=== PATIENT | female | born 1995 | race Caucasian/White ===

== ENCOUNTER → 2018-08-01 22:36 | Observation (INO) ==
[2018-08-01 20:06] LABS: Bilirubin,Urine Negative (Negative); Blood,Urine Negative (Negative); Clarity,Urine Clear (Clear); Color,Urine Yellow (Yellow); Glucose,Urine (UA) Normal (Normal); Ketones,Urine Negative (Negative); Leukocyte Esterase,Urine Negative (Negative); Nitrite,Urine Negative (Negative); Protein,Urine Negative (Neg-Trace); Specific Gravity,Urine 1.012 (1.010-1.025); Urobilinogen,Urine Normal (Normal)
[2018-08-01 20:15] LABS: Amphetamine Screen,Urine Negative ng/mL (Cutoff=1000); Barbiturate Screen,Urine Negative ng/mL (Cutoff=200); Benzodiazepines Screen,Urine Negative ng/mL (Cutoff=200); Cannabinoid Screen,Urine Negative ng/mL (Cutoff = 50); Cocaine Screen,Urine Negative ng/mL (Cutoff= 300); Opiate Screen,Urine Negative ng/mL (Cutoff=300); Phencyclidine Screen,Urine Negative ng/mL (Cutoff=25)
--- NOTE | 2018-08-01 22:32 | Discharge Summary ---
Date of Encounter: 08/01/18 Time of Encounter: 22:39 - Discharge Diagnosis (1) 27 weeks gestation of Priority: Primary Status: Acute Comments: Admitted to observation to rule out labor. No contractions visualized on toco. Cervix closed thick and high. FHR 130 bpm, moderate variability, no decelerations, +10x10 accels. (2) Abdominal pain during in second trimester Priority: Secondary Status: Acute Comments: Bilateral low abdominal pain most likely round ligament pain. Previous delivery at 35 weeks gestation. Patient requested cervical exam. Closed thick and high To follow-up with Dr. Collado as scheduled in 2 weeks unless symptoms worsen. - Discharge Medications Allergies/Adverse Reactions: Allergy/AdvReac Type Severity Reaction Status Date / Time oseltamivir [From Tamiflu] AdvReac Hallucinati Verified 01/24/17 19:16 ng Data Procedures and tests throughout hospitalization: Laboratory Tests 08/01/18 08/01/18 19:50 19:50 Urine Color Yellow Urine Clarity Clear Urine pH 7.0 Ur Specific [place] 1.012 Urine Protein Negative Urine Glucose (UA) Normal Urine Ketones Negative Urine Blood Negative Urine Nitrite Negative Urine Bilirubin Negative Urine Urobilinogen Normal Ur Leukocyte Esterase Negative Ur Culture Indicated? NO Urine Opiates Screen Negative Ur Barbiturates Screen Negative Ur Phencyclidine Scrn Negative Ur Amphetamines Screen Negative U Benzodiazepines Scrn Negative Urine Cocaine Screen Negative U Marijuana (THC) Screen Negative Ur Drug Screen Interp See Below Labs on day of discharge: Labs from last 24 hours 08/01/18 08/01/18 19:50 19:50 Urine Color Yellow Urine Clarity Clear Urine pH 7.0 Ur Specific [place] 1.012 Urine Protein Negative Urine Glucose (UA) Normal Urine Ketones Negative Urine Blood Negative Urine Nitrite Negative Urine Bilirubin Negative Urine Urobilinogen Normal Ur Leukocyte Esterase Negative Ur Culture Indicated? NO Urine Opiates Screen Negative Ur Barbiturates Screen Negative Ur Phencyclidine Scrn Negative Ur Amphetamines Screen Negative U Benzodiazepines Scrn Negative Urine Cocaine Screen Negative U Marijuana (THC) Screen Negative Ur Drug Screen Interp See Below Date of admission: 08/01/18 19:23 Discharging clinician: Sherlyn Ross Anticipated date of discharge: 08/01/18 - Patient Status Disposition: Home, Self-Care Condition: Good Functional capacity at discharge: independent ambulation Overall status at discharge: patient is progressing back to baseline - Discharge Instructions Follow Up With: Shoshana Collado MD [Partnered Physician] - Additional Instructions: LABOR AND DELIVERY DISCHARGE INSTRUCTIONS Signs and Symptoms to be Reported to your Doctor Immediately: * Sudden gush, continuous or intermittent lead of fluid from vagina (note the time of gush and color of fluid) * Onset of bright red vaginal bleeding with or without pain (if you had a vaginal exam during this visit you may notice some dark red spotting. This is normal.) * Lower abdominal cramping or backache that is premenstrual-like feeling. * More than 6 contractions in one hour. * Burning during urination, having to urinate more frequently or pain in your mid-back. * A change in the baby's activity. This could be an increase or decrease in activity. * Severe headache which does not go away with tylenol. * Sudden swelling in the face, hands, arms and/or legs. * Upper abdominal pain - sometimes associated with heartburn or nausea and is not relieved by Maalox, Mylanta or Tums. * Dizziness or blurred vision or visual disturbances (seeing stars/lights). * Kick Counts One hour after a meal, lay down on one side in a quiet place. Count the number of angela the baby moves during an hour. If less than 6 movements, notify your physician. Diet: *Force fluids - 8-10 tall glasses of fluid per day. May include popsicles and jello. *Limit caffeine - this includes chocolate, coffee, tea, any soft drink containing such as all lakshmi, David Yellow and Mountain Dew - Diet and Activity Activity: resume usual activities as tolerated Diet: regular diet Hospital Course [employer] Reason for admission: other (bilateral low abdominal pain.) Hospital course: Goldie is a G 3 P1 at 25 weeks gestation who presents today with lower abdominal pain bilaterally. States she was sitting at home when she noticed it around 5:00 today. Patient has not taken Tylenol or tried any relief measures. Reports positive movement, denies vaginal bleeding and discharge. Patient reports she had a previous 35 week delivery. She is not currently on progesterone of any sort. Patient has a follow-up appointment for regular visit with Dr. Collado on 08/20. Patient states her course has been uncomplicated. heart tones are appropriate for gestational age. No contractions visualized on toco monitor. Patient requested vaginal exam and was found to be closed thick and high. Time Attestation: Total time spent providing and/or coordinating discharge services: Time Spent: Less than 30 minutes Exam - Constitutional General appearance IM: A&O X 3, pleasant, no acute distress, answers questions appropriately - Respiratory Respiratory exam: Present: CTAB - Cardiovascular Cardiovascular exam IM: Present: RRR, +S1, +S2 - GI/Abdominal GI/Abdominal exam IM: normal bowel sounds, soft - Rectal Rectal exam: deferred - External exam: normal external exam - Extremities Exam Extremities exam IM: Present: full ROM, normal capillary refill, normal inspection, warm - Neurological Exam Neurological exam: alert, oriented X3, reflexes normal - VTE Reasons for not Prescribing Prophylaxis: Treatment not Indicated - Low risk for VTE
== END | disposition home or self-care (01) ==
LOC: 1NENULAB
PROVIDERS: ADMIT Registered Nurse; ATTEND Registered Nurse

== ENCOUNTER → 2018-09-17 19:20 | Observation (INO) ==
[2018-09-16] MEDS: Betamethasone Acet/SodPhos 6 MG/ML MDV IM SCH (19:12)
[2018-09-16] MEDS: Ringers Solution, Lactated 1,000 ML IVC SCH (19:14)
[2018-09-16 19:16] LABS: Bilirubin,Urine Negative (Negative); Blood,Urine Negative (Negative); Clarity,Urine Cloudy (Clear); Color,Urine Yellow (Yellow); Glucose,Urine (UA) Normal (Normal); Ketones,Urine Negative (Negative); Leukocyte Esterase,Urine Negative (Negative); Nitrite,Urine Negative (Negative); PH,Urine 6.5 pH Units (5.0-8.0); Protein,Urine Negative (Neg-Trace); Specific Gravity,Urine 1.019 (1.010-1.025); Urobilinogen,Urine Normal (Normal)
[2018-09-16 19:19] LABS: Bacteria,Urine None Seen per hpf (None-Few); Hyaline Casts,Urine None Seen per lpf (None-Few); Squamous Epithelial Cell,Urine Many per lpf (None-Few)
[2018-09-16 19:24] LABS: Basophils % 0.3 %; Eosinophils # 0.1 K/mcL (0.0-0.6); Eosinophils % 0.6 %; Hematocrit 36.7 % (35.3-44.9); Hemoglobin 12.2 g/dL (11.5-15.4); Immature Granulocytes % 0.6 % (0-4); Lymphocytes # 2.1 K/mcL (0.6-4.6); Lymphocytes % 20.7 %; Mean Corpuscular HGB Conc 33.2 g/dL (31.6-35.5); Mean Corpuscular Hemoglobin 28.4 pg (28.0-33.3); Mean Corpuscular Volume 85.3 fL (83.0-100.0); Monocytes # 0.7 K/mcL (0.0-1.3); Monocytes % 7.4 %; Platelet Count 194 K/mcL (140-400); Red Cell Distribution Width 12.2 % (11.5-14.5); Segmented Neutrophils % 70.4 %
[2018-09-16 19:26] LABS: Amphetamine Screen,Urine Negative ng/mL (Cutoff=1000); Barbiturate Screen,Urine Negative ng/mL (Cutoff=200); Benzodiazepines Screen,Urine Negative ng/mL (Cutoff=200); Cannabinoid Screen,Urine Negative ng/mL (Cutoff = 50); Cocaine Screen,Urine Negative ng/mL (Cutoff= 300); Opiate Screen,Urine Negative ng/mL (Cutoff=300); Phencyclidine Screen,Urine Negative ng/mL (Cutoff=25)
[2018-09-16 19:30] LABS: Amorphous Sediment,Urine Many (Few)
--- NOTE | 2018-09-16 20:40 | OB/GYN History & Physical ---
Date of Encounter: 09/16/18 Time of Encounter: 18:40 Assessment and Plan (1) 31 weeks gestation of Current visit: Yes Status: Acute (2) labor in second trimester Current visit: Yes Status: Acute Patient given IV hydration. One dose of terbutaline. No change with this. Patient continued to contract. She was started on Procardia 20 mg every 6 hours. She was also given first dose of steroids on admission because of her history of delivery with her previous . Qualifiers: labor delivery status: without delivery Qualified Code(s): O60.02 - labor without delivery, second trimester History of Present Illness Chief complaint: ctxs HPI: Ms. Higgins is a 22 year old female who presents to labor and delivery at 31 weeks and 4 days complaining of lower back pain and pressure contractions which started approximately 3 hours ago. She states that her first she began laboring at 27 weeks and delivered 5 weeks early. On presentation she was found to be panda every 2-4 minutes. She was breathing through the contractions. She denies any leakage or discharge. Sterile vaginal exam was performed she was found to be 1 cm, 70% effaced and a -2 station. Patient given IV hydration, one dose of terbutaline and steroids because of her history of delivery. She has no drug allergies. She is currently on vitamins. She has no chronic medical conditions. Surgical history is negative. She has no history of abnormal Pap smears, STDs or pelvic infections. She has no history of abnormal breast findings. Socially she denies tobacco, alcohol, illicit drug use. Obstetric history significant for 1 vaginal delivery uncomplicated. Family history significant for diabetes, heart disease, hypercholesterolemia and COPD. Her maternal grandmother also had breast cancer. Past Med Surg Social Fam HX - Past Medical History Medical history: no medical history Additional medical history: CHRONIC pelvic pain. ENDOMETRIOSIS. ESOPHAGITIS Psychiatric history: no psych history - Past Surgical History Surgical History: no surgical history Additional surgical history: laprascopic uterine surgery - Social History Smoking Status: Never smoker Smokeless Tobacco Status: No Alcohol use: none, occasionally Drug use: none - Family History Mother Adopted: [place]: Ameena Age: 43 Family Member Ethnicity: Non- Living Status: Still Living Hx Family Cancer: Yes Obstetrical History - Pregnancies : 3 Para: 1 Term: 1 Ab's: 1 Livin Medications and Allergies Allergy/AdvReac Type Severity Reaction Status Date / Time oseltamivir [From Tamiflu] AdvReac Hallucinati Verified 01/24/17 19:16 ng Review of System OB All systems PM: reviewed and no additional remarkable complaints except as stated Exam - Constitutional Constitutional: well developed, well nourished, no acute distress, average body habitus, mild distress - HEENT HEENT: EOMI, PERRL - Neck Neck exam: full ROM - Lungs Respiratory exam: CTAB - Cardiovascular Cardiovascular exam: RRR - Abdomen Abdomen: Present: bowel sounds normal, gravid, non tender - Vagina Vagina: Present: normal moisture - Cervix Dilation: 1 Effacement: 70 Station: -2 - Uterus Uterus exam: Present: normal size Results Result Diagrams: 09/16/18 19:02 Abnormal lab results Urine Clarity Cloudy (Clear) A 09/16/18 19:02 Urine Microscopic RBC 3-5 per hpf (0-3) H 09/16/18 19:02 Urine Microscopic WBC 3-5 per hpf (0-3) H 09/16/18 19:02 Ur Squamous Epith Cells Many per lpf (None-Few) H 09/16/18 19:02 Amorphous Sediment Many (Few) H 09/16/18 19:02 All other labs normal. - VTE Reasons for not Prescribing Prophylaxis: Treatment not Indicated - Low risk for VTE
--- NOTE | 2018-09-17 06:41 | OB/GYN Progress Note ---
Date of Encounter: 09/17/18 Time of Encounter: 06:39 - Assessment and Plan (1) 31 weeks gestation of Current Visit: Yes Status: Acute (2) labor in second trimester Current Visit: Yes Status: Acute Patient given IV hydration. One dose of terbutaline. No change with this. Patient continued to contract. She was started on Procardia 20 mg every 6 hours. She was also given first dose of steroids on admission because of her history of delivery with her previous . Qualifiers: labor delivery status: without delivery Qualified Code(s): O60.02 - labor without delivery, second trimester Subjective - Subjective Principal diagnosis: labor Interval history: 22-year-old female who presented to labor and delivery panda at 32 weeks. On examination patient was found to be 1 cm 70% effaced at admission. Patient continued to contract. She was given IV hydration, terbutaline followed eventually by Procardia. Patient continued to contract. Repeat examination pa tient was found to be 3 cm. She was then started on magnesium sulfate. Since that time contractions have spaced out. Over the night there is been no cervical change. Patient will go without contractions and then have a few that time. We will continue to monitor. Patient has had first dose steroids. Objective - Vital Signs Vital Signs: Intake and Output 09/16/18 09/16/18 09/17/18 15:59 23:59 07:59 Output Total 400 / 400 Balance -400 / -400 Output: Urine 400 / 400 Other: Weight 66.3 kg - Exam FHR: category 1 Abdomen: Present: normal appearance, gravid Uterus: Present: normal Cervical dilation: 3 Cervix effacement: 70 station: -3 - Labs Labs: Abnormal lab results Urine Clarity Cloudy (Clear) A 09/16/18 19:02 Urine Microscopic RBC 3-5 per hpf (0-3) H 09/16/18 19:02 Urine Microscopic WBC 3-5 per hpf (0-3) H 09/16/18 19:02 Ur Squamous Epith Cells Many per lpf (None-Few) H 09/16/18 19:02 Amorphous Sediment Many (Few) H 09/16/18 19:02
[2018-09-17] MEDS: Ringers Solution, Lactated 1,000 ML IVC SCH (08:11)
[2018-09-17] MEDS: Penicillin G Potassium 2,500,000 UNIT in 0.9 % Sodium Chloride 100 ML IVPB SCH ×3 (08:12→17:56)
[2018-09-17] MEDS: Betamethasone Acet/SodPhos 6 MG/ML MDV IM SCH (19:08)
[~2018-09-17 19:20] MED LIST: Magnesium Sulfate 20 gm/500mL 20 GM/500 ML IV.SOLN IV SCH; NIFEdipine 10 MG CAPSULE PO ONE; NIFEdipine 10 MG CAPSULE PO SCH; Penicillin G Potassium 5,000,000 UNIT in 0.9 % Sodium Chloride Mini Bag 100 ML IVPB ONE; Ringers Solution, Lactated 1,000 ML ONE; Terbutaline 1 MG/ML VIAL SQ ONE
== END | disposition home or self-care (01) ==
LOC: 1NENULAB
PROVIDERS: ADMIT Obstetrics & Gynecology; ATTEND Obstetrics & Gynecology

== ENCOUNTER → 2018-09-18 17:55 | Observation (INO) ==
--- NOTE | 2018-09-18 14:07 | OB/GYN Progress Note ---
Date of Encounter: 09/18/18 Time of Encounter: 14:04 - Assessment and Plan (1) labor in third trimester Current Visit: Yes Status: Acute Plan of care made with Dr. Aguero We will give 4 g load of mag sulfate and reassess contraction pattern. Transfer to [facility] if needed Patient received steroid course last dose yesterday Qualifiers: labor delivery status: without delivery Qualified Code(s): O60.03 - labor without delivery, third trimester (2) NST (non-stress test) reactive Current Visit: Yes Status: Acute FHR 140 bpm, moderate variability, +10x10s accel, no decel (3) 31 weeks gestation of Current Visit: No Status: Acute Patient admitted to observation for labor Will reassess contraction pattern after mag sulfate bolus and transfer to [facility] if necessary. Subjective - Subjective Principal diagnosis: labor Interval history: Goldie presented today with complaints of contractions since noon. She had previously been admitted on Monday for labor was given a course of steroids and sent home yesterday morning. She returns today and visible discomfort. Her cervix is unchanged at 3 cm 80% and -[address] Aguero aware of patient's status and complaints. Orders received to begin magnesium sulfate and reassess for labor. Will transfer patient if contractions continue and cervical change is noted. Today she states the fetus has not moved as much as normal, she denies bleeding and fluid leakage. Antepartum ROS: movement normal (decreased today), contractions, no loss of fluid, no vaginal bleeding Objective - Exam FHR: category 1 Abdomen: Present: normal appearance, soft, gravid Uterus: Present: normal Cervical dilation: 3 Cervix effacement: 80 station: -1
[2018-09-18 14:09] VITALS: BP 122/70
[2018-09-18 14:34] LABS: Basophils % 0.1 %; Hematocrit 35.2 % (35.3-44.9); Hemoglobin 11.5 g/dL (11.5-15.4); Immature Granulocytes % 1.2 % (0-4); Lymphocytes # 1.7 K/mcL (0.6-4.6); Lymphocytes % 11.2 %; Mean Corpuscular HGB Conc 32.7 g/dL (31.6-35.5); Mean Corpuscular Hemoglobin 28.1 pg (28.0-33.3); Mean Corpuscular Volume 86.1 fL (83.0-100.0); Mean Platelet Volume 11.1 fL (9.4-12.4); Monocytes # 0.9 K/mcL (0.0-1.3); Monocytes % 5.8 %; Neutrophils # 12.4 K/mcL (1.6-8.9); Platelet Count 193 K/mcL (140-400); Red Blood Count 4.09 M/mcL (3.82-4.97); Red Cell Distribution Width 12.4 % (11.5-14.5); Segmented Neutrophils % 81.7 %
[2018-09-18 16:22] LABS: Bilirubin,Urine Negative (Negative); Blood,Urine Negative (Negative); Clarity,Urine Cloudy (Clear); Color,Urine Yellow (Yellow); Glucose,Urine (UA) Normal (Normal); Ketones,Urine Negative (Negative); Leukocyte Esterase,Urine Negative (Negative); Nitrite,Urine Negative (Negative); Protein,Urine Negative (Neg-Trace); Specific Gravity,Urine 1.008 (1.010-1.025); Urobilinogen,Urine Normal (Normal)
[2018-09-18 16:24] LABS: Bacteria,Urine None Seen per hpf (None-Few); Hyaline Casts,Urine None Seen per lpf (None-Few); RBC,Urine 0-3 per hpf (0-3); Squamous Epithelial Cell,Urine Many per lpf (None-Few); WBC,Urine 0-3 per hpf (0-3)
[2018-09-18 16:39] LABS: Amphetamine Screen,Urine Negative ng/mL (Cutoff=1000); Barbiturate Screen,Urine Negative ng/mL (Cutoff=200); Benzodiazepines Screen,Urine Negative ng/mL (Cutoff=200); Cannabinoid Screen,Urine Negative ng/mL (Cutoff = 50); Cocaine Screen,Urine Negative ng/mL (Cutoff= 300); Opiate Screen,Urine Negative ng/mL (Cutoff=300); Phencyclidine Screen,Urine Negative ng/mL (Cutoff=25)
--- NOTE | 2018-09-18 17:01 | OB/GYN Progress Note ---
Date of Encounter: 09/18/18 Time of Encounter: 16:57 - Assessment and Plan (1) labor in third trimester Current Visit: Yes Status: Acute Plan of care made with Dr. Aguero We will give 4 g load of mag sulfate and reassess contraction pattern. Transfer to [facility] if needed Patient received steroid course last dose yesterday Update at 1659: Patient continues to contract. Agreeable to transfer to [facility] for labor. Spoke with [facility] fellow at [facility] and transfer was accepted at this time by Dr. Cheung Qualifiers: labor delivery status: without delivery Qualified Code(s): O60.03 - labor without delivery, third trimester (2) NST (non-stress test) reactive Current Visit: Yes Status: Acute FHR 140 bpm, moderate variability, +10x10s accel, no decel (3) 31 weeks gestation of Current Visit: No Status: Acute Patient admitted to observation for labor Will reassess contraction pattern after mag sulfate bolus and transfer to [facility] if necessary. Subjective - Subjective Principal diagnosis: labor Interval history: Patient continues to contract despite 4 g magnesium bolus and 2 g per hour. Her cervix remains unchanged from previous exam. Plan of care discussed with Dr. Aguero, decision made to go ahead and transfer patient to [facility] at this time. Spoke with fellow at [facility] and transfer accepted under Dr. Cheung. Discussed transfer with patient and she is agreeable to be taken to [facility]. Will continue magnesium for transport. Objective - Vital Signs Vital Signs: Vital Signs Temp Pulse Resp BP 09/18/18 14:05 98.8 F 75 14 122/70 - Exam FHR: category 1 Cervical dilation: 3 Cervix effacement: 80 station: -2 - Labs Labs: Abnormal lab results WBC 15.2 K/mcL (4.3-11.1) H D 09/18/18 14:00 Hct 35.2 % (35.3-44.9) L 09/18/18 14:00 Neutrophils # 12.4 K/mcL (1.6-8.9) H 09/18/18 14:00 Urine Clarity Cloudy (Clear) A 09/18/18 16:12 Ur Specific [place] 1.008 (1.010-1.025) L 09/18/18 16:12 Ur Squamous Epith Cells Many per lpf (None-Few) H 09/18/18 16:12
[~2018-09-18 17:55] MED LIST changes: -Magnesium Sulfate 20 gm/500mL 20 GM/500 ML IV.SOLN IV SCH; +Magnesium Sulfate 20 gm/500mL 20 GM/500 ML IV.SOLN IVC SCH; -NIFEdipine 10 MG CAPSULE PO ONE; -NIFEdipine 10 MG CAPSULE PO SCH; -Penicillin G Potassium 5,000,000 UNIT in 0.9 % Sodium Chloride Mini Bag 100 ML IVPB ONE; +Ringers Solution, Lactated 1,000 ML IVC SCH; -Ringers Solution, Lactated 1,000 ML ONE; -Terbutaline 1 MG/ML VIAL SQ ONE
== END | disposition critical access hospital (66) ==
LOC: 1NENULAB
PROVIDERS: ADMIT Registered Nurse; ATTEND Registered Nurse

== ENCOUNTER 2018-11-02 18:03 | Inpatient (IN) ==
[2018-11-02] MEDS ORDERED: Naloxone 0.4 MG/ML INJ IVP PRN (18:07)
[2018-11-02] MEDS ORDERED: *HR* Nalbuphine 10 MG/ML AMPUL IVP PRN (18:07)
[2018-11-02] MEDS ORDERED: Ondansetron 4 MG/2 ML VIAL IVP PRN (18:07)
[2018-11-02] MEDS ORDERED: Metoclopramide 10 MG/2 ML VIAL IVP PRN (18:07)
[2018-11-02] MEDS ORDERED: Famotidine 20 MG/2 ML VIAL IVP PRN (18:07)
[2018-11-02] MEDS ORDERED: Ringers Solution, Lactated 1,000 ML ONE (18:09)
[2018-11-02] MEDS ORDERED: Ringers Solution, Lactated 1,000 ML IVC SCH (18:15)
[2018-11-02 18:39] LABS: Basophils % 0.3 %; Eosinophils # 0.1 K/mcL (0.0-0.6); Eosinophils % 0.6 %; Hematocrit 34.7 % (35.3-44.9); Hemoglobin 11.4 g/dL (11.5-15.4); Immature Granulocytes % 0.2 % (0-4); Lymphocytes # 2.1 K/mcL (0.6-4.6); Lymphocytes % 21.8 %; Mean Corpuscular HGB Conc 32.9 g/dL (31.6-35.5); Mean Corpuscular Hemoglobin 27.3 pg (28.0-33.3); Mean Corpuscular Volume 83.2 fL (83.0-100.0); Mean Platelet Volume 12.2 fL (9.4-12.4); Monocytes # 0.6 K/mcL (0.0-1.3); Monocytes % 6.5 %; Neutrophils # 6.7 K/mcL (1.6-8.9); Platelet Count 188 K/mcL (140-400); Red Blood Count 4.17 M/mcL (3.82-4.97); Segmented Neutrophils % 70.6 %
[2018-11-02 18:41] LABS: Amphetamine Screen,Urine Negative ng/mL (Cutoff=1000); Barbiturate Screen,Urine Negative ng/mL (Cutoff=200); Benzodiazepines Screen,Urine Negative ng/mL (Cutoff=200); Cannabinoid Screen,Urine Negative ng/mL (Cutoff = 50); Cocaine Screen,Urine Negative ng/mL (Cutoff= 300); Opiate Screen,Urine Negative ng/mL (Cutoff=300); Phencyclidine Screen,Urine Negative ng/mL (Cutoff=25)
--- NOTE | 2018-11-02 19:02 | OB/GYN History & Physical ---
Date of Encounter: 11/02/18 Time of Encounter: 18:59 Assessment and Plan (1) 38 weeks gestation of Current visit: Yes Status: Acute Expectant management of labor History of Present Illness Chief complaint: labor HPI: Ms. Higgins is a 22 year old female at 38 weeks and 2 days who presents to labor and delivery in labor. On presentation she is 8 cm 100% effaced with bulging bag. She is panda irregularly. She is having no complaints of any kind. This patient has no drug allergies. She is currently on vitamins. She has no chronic medical conditions. Surgical history includes a diagnostic laparoscopy for endometriosis. She has no history of abnormal Pap smears, STDs or pelvic infections. Socially she denies tobacco, alcohol, illicit drug use. Obstetric history significant for one vaginal delivery uncomplicated. Family history significant for diabetes, heart disease and hypercholesterolemia. Patient's maternal grandmother had breast cancer. Past Med Surg Social Fam HX - Past Medical History Medical history: no medical history Additional medical history: CHRONIC pelvic pain. ENDOMETRIOSIS. ESOPHAGITIS Psychiatric history: no psych history - Past Surgical History Surgical History: no surgical history Additional surgical history: laprascopic uterine surgery - Social History Smoking Status: Never smoker Smokeless Tobacco Status: No Alcohol use: none, occasionally Drug use: none - Family History Mother Adopted: No Family Member Ethnicity: Non- Living Status: Still Living Hx Family Cardiac Disorders: No Hx Family Respiratory Disorders: No Hx Family Cancer: Yes (breast cancer) Hx Family GI Disorders: No Hx Family Endocrine Disorder: No Hx Family Neuromuscular Disorders: No Hx Family Neurologic Disorders: No Hx Family HEENT Disorders: No Hx Family Autoimmune Disorders: No Obstetrical History - Pregnancies : 3 Para: 1 Term: 0 : 1 Ab's: 1 Livin Medications and Allergies Allergy/AdvReac Type Severity Reaction Status Date / Time oseltamivir [From Tamiflu] AdvReac Hallucinati Verified 01/24/17 19:16 ng Review of System OB All systems PM: reviewed and no additional remarkable complaints except as stated Exam - Constitutional Constitutional: well developed, well nourished, no acute distress, average body habitus - HEENT HEENT: EOMI, PERRL - Neck Neck exam: full ROM - Lungs Respiratory exam: CTAB - Cardiovascular Cardiovascular exam: RRR - Abdomen Abdomen: Present: bowel sounds normal, gravid, non tender - Extremities Extremities exam: full ROM - Vagina Vagina: Present: normal moisture - Cervix Dilation: 8 Effacement: 100 Station: -1 - Uterus Uterus exam: Present: normal size Results Result Diagrams: 11/02/18 18:06 Abnormal lab results Hgb 11.4 g/dL (11.5-15.4) L 11/02/18 18:06 Hct 34.7 % (35.3-44.9) L 11/02/18 18:06 MCH 27.3 pg (28.0-33.3) L 11/02/18 18:06 All other labs normal. - VTE Reasons for not Prescribing Prophylaxis: Treatment not Indicated - Low risk for VTE
[2018-11-02] MEDS ORDERED: Oxytocin 20 units/ LR 1000 mL 20 UNIT/1,000 ML BAG IVC ONE (19:22)
--- NOTE | 2018-11-02 20:49 | OB/GYN Procedure Note ---
Delivery - Delivery Date: 11/02/18 Provider: Alfredito Alvarez Intrapartum events: none Delivery induction: none Delivery augmentation: rupture of membranes Delivery monitor: external FHT, external uterine Anesthesia: none Quantitated Blood Loss: 200 - Infant (s) A Delivery Date: 11/02/18 Infant Delivery Time: 20:31 Presentation: vertex Position: OA Route of delivery: Gender: Male Viability: Viable Pounds: 7 Ounces: 14 Weight Gram: 3.57 kg at 1 minute: 9 at 5 mins: 9 Shoulder Dystocia: not encountered Specimens collected: cord blood Placenta: spontaneous Cord: 3 umbilical vessels - Repair Episiotomy: none Laceration Description: None - Complications Delivery complications: none - Disposition Mom disposition: stable in LDR disposition: stable in LDR - Comments Comments: Patient progressed to complete and pushing and had a spontaneous vaginal delivery of a male over an intact perineum. The 's head was on the perineum easily. The rest of the was then delivered with 1 push. Infant cried immediately upon delivery. The cord was cut to cut after 1 minute. Cord blood was obtained. Placenta was delivered spontaneously intact. There are no cervical, vaginal, periurethral or perineal lacerations noted. Patient delivered a male infant with which was passed immediately to mother. Weight 7 lbs. 14 oz. with Apgars of 9 at 1 minute and 9 at 5 minutes.
[2018-11-02] MEDS ORDERED: Rho Immune Globulin 1,500 UNIT SYRINGE IM PRN (23:03)
[2018-11-02] MEDS ORDERED: Measles/Mumps/Rubella Vacc 0.5 ML VIAL SQ PRN (23:03)
[2018-11-02] MEDS ORDERED: Acetaminophen 325 MG TABLET PO PRN (23:03)
[2018-11-02] MEDS ORDERED: Oxytocin 20 units/ LR 1000 mL 20 UNIT/1,000 ML BAG IVC SCH (23:03)
[2018-11-02] MEDS: Ibuprofen 600 MG TABLET PO PRN (23:30)
[2018-11-03 07:06] LABS: Basophils % 0.2 %; Eosinophils % 0.3 %; Hematocrit 32.8 % (35.3-44.9); Hemoglobin 10.7 g/dL (11.5-15.4); Immature Granulocytes % 0.6 % (0-4); Immature Platelets 6.5 % (1.1-6.1); Lymphocytes # 2.4 K/mcL (0.6-4.6); Lymphocytes % 17.5 %; Mean Corpuscular HGB Conc 32.6 g/dL (31.6-35.5); Mean Corpuscular Hemoglobin 27.2 pg (28.0-33.3); Mean Corpuscular Volume 83.2 fL (83.0-100.0); Mean Platelet Volume 11.6 fL (9.4-12.4); Monocytes # 0.7 K/mcL (0.0-1.3); Monocytes % 5.5 %; Neutrophils # 10.2 K/mcL (1.6-8.9); Platelet Count 159 K/mcL (140-400); Red Blood Count 3.94 M/mcL (3.82-4.97); Red Cell Distribution Width 12.7 % (11.5-14.5); Segmented Neutrophils % 75.9 %
[2018-11-03] MEDS ORDERED: Prenatal Vit/FA 1 EACH TABLET PO SCH (09:00)
[2018-11-03] MEDS: Ibuprofen 600 MG TABLET PO PRN ×2 (09:38→15:56)
--- NOTE | 2018-11-03 10:58 | OB/GYN Progress Note ---
Date of Encounter: 11/03/18 Time of Encounter: 10:58 - Assessment and Plan (1) Vaginal delivery Current Visit: Yes Status: Acute Patient meeting day one milestones. Pain well-controlled with prescribed medications. Voiding without difficulty, tolerating regular diet. No bowel movement yet. Anticipate discharge tomorrow. Patient would like to wait for discharge until morning. Subjective - Subjective Principal diagnosis: Status post vaginal delivery Interval history: Patient is doing well today. Requests to wait for discharge until tomorrow morning so she doesn't have to take the baby home so late. Patient meeting day one milestones. Pain well-controlled with prescribed medications. Voiding without difficulty, tolerating regular diet. No bowel movement yet. Bleeding light-moderate. Anticipate discharge tomorrow Patient reports: appetite normal, voiding normally, pain well controlled, ambulating normally [place]: doing well, bottle feeding Objective - Latest Vital Signs Latest vital signs: Vital Signs Temp Pulse Resp BP Pulse Ox 11/03/18 07:40 97.8 F 81 12 111/74 98 11/03/18 01:10 97.8 F 85 16 119/67 98 11/03/18 00:10 98.2 F 87 18 138/87 99 11/02/18 23:10 98.1 F 83 20 141/88 98 Intake and Output 11/02/18 11/03/18 11/03/18 23:59 07:59 15:59 Intake Total 450 / 450 250 / 250 Output Total 600 / 600 Balance -600 / -600 450 / 450 250 / 250 Intake: Oral 450 / 450 250 / 250 Output: Urine 600 / 600 Other: Meal Breakfast Percent of Meal Consumed 90% Weight 68.2 kg 68.2 kg Patient Weight 11/03/18 23:59 Weight 68.2 kg - Exam Lungs: bilateral: normal Chest: Normal S1, Normal S2 Extremities: Present: normal Abdomen: Present: normal appearance, soft Uterus: Present: normal, firm Uterus Position: 1 Finger Below Umbilicus, Midline - Labs Labs: Laboratory Results - last 24 hr 11/02/18 11/02/18 11/02/18 18:06 18:06 20:50 WBC 9.5 RBC 4.17 Hgb 11.4 L Hct 34.7 L MCV 83.2 MCH 27.3 L MCHC 32.9 RDW 13.0 Plt Count 188 MPV 12.2 Immature Gran % 0.2 Seg Neutrophils % 70.6 Lymphocytes % 21.8 Monocytes % 6.5 Eosinophils % 0.6 Basophils % 0.3 Neutrophils # 6.7 Lymphocytes # 2.1 Monocytes # 0.6 Eosinophils # 0.1 Basophils # 0.0 Immature Plt Fraction Urine Opiates Screen Negative Ur Barbiturates Screen Negative Ur Phencyclidine Scrn Negative Ur Amphetamines Screen Negative U Benzodiazepines Scrn Negative Urine Cocaine Screen Negative U Marijuana (THC) Screen Negative Ur Drug Screen Interp See Below Rubella IgG Antibody POSITIVE Baby's Blood Type Mother's Blood Type Rhogam Indicated 11/02/18 11/03/18 20:50 06:56 WBC 13.5 H RBC 3.94 Hgb 10.7 L Hct 32.8 L MCV 83.2 MCH 27.2 L MCHC 32.6 RDW 12.7 Plt Count 159 MPV 11.6 Immature Gran % 0.6 Seg Neutrophils % 75.9 Lymphocytes % 17.5 Monocytes % 5.5 Eosinophils % 0.3 Basophils % 0.2 Neutrophils # 10.2 H Lymphocytes # 2.4 Monocytes # 0.7 Eosinophils # 0.0 Basophils # 0.0 Immature Plt Fraction 6.5 H Urine Opiates Screen Ur Barbiturates Screen Ur Phencyclidine Scrn Ur Amphetamines Screen U Benzodiazepines Scrn Urine Cocaine Screen U Marijuana (THC) Screen Ur Drug Screen Interp Rubella IgG Antibody Baby's Blood Type O RH NEGATIVE Mother's Blood Type B RH NEGATIVE Rhogam Indicated NO
[2018-11-03 16:00] VITALS: BP 120/83
--- NOTE | 2018-11-03 21:11 | Event Note ---
Date of Encounter: 11/03/18 Time of Encounter: 21:10 Call received from RN caring for patient. She is requesting to be discharged home this evening. Patient is doing well with no change noted from previous assessment.
== END 2018-11-03 22:15 | disposition home or self-care (01) | DRG 807 ==
LOC: 1NENULAB → 1NENUOBS 23:01
PROVIDERS: ADMIT Obstetrics & Gynecology; ATTEND Obstetrics & Gynecology